=== PATIENT | male | born 1960 | race Caucasian/White ===

== ENCOUNTER 2025-04-20 08:51 | Outpatient (CLI) | payer BC | END 2025-04-20 08:52 | disposition home or self-care (01) | LOC: CSHSLEEP 08:51 | PROVIDERS: ATTEND Internal Medicine Critical Care Medicine | DX: G47.33 Obstructive sleep apnea (adult) (pediatric) (principal); Z96.82 Presence of neurostimulator | CPT/HCPCS: 95810; 95977 ==